=== PATIENT | female | born 1955 | race Caucasian/White ===

== ENCOUNTER 2017-05-14 15:39 | Outpatient (CLI) | payer OTHER ==
[2017-05-14] MEDS ORDERED: LANTUSSOLASTAR SUBQ (17:07)
[2017-05-14] MEDS ORDERED: HUMALOG100 UNIT/1 SUBQ (17:08)
[2017-05-14] MEDS ORDERED: FENOFIBRATE160 MG PO (17:10)
[2017-05-14] MEDS ORDERED: LISINOPRIL20 MG PO (17:12)
[2017-05-14] MEDS ORDERED: LIPITOR 20 MG T20 M1 PO (17:13)
[2017-05-14] MEDS ORDERED: METFORMIN HCL500 MG PO (17:13)
[2017-05-14] MEDS ORDERED: PROTONIX40 M1 PO (17:14)
[2017-05-14] MEDS ORDERED: TYLENOL325 MG PO (17:15)
[2017-05-14 18:19] VITALS: BP 137/62
[2017-05-14 21:50] VITALS: BP 160/71
== END 2017-05-14 21:55 | disposition home or self-care (01) ==
LOC: OPONC 15:39 → 3N 18:02 → OPONC 21:55
DX: D50.9 Iron deficiency anemia, unspecified (principal)
CPT/HCPCS: 10795; 91030